=== PATIENT | male | born 2000 | race Two or more races ===

== ENCOUNTER 2019-01-09 12:56 | Emergency (ER) | payer MEDICAID ==
[~2019-01-09] VITALS: Ht 177.8 cm; Wt 68.0 kg
[~2019-01-09 12:56] MED LIST: IBUP-1984 PO
[2019-01-09 13:01] VITALS: BP 116/67
== END 2019-01-09 14:14 | disposition home or self-care (01) ==
LOC: ER 12:56
DX: S99.912A Unspecified injury of left ankle, initial encounter (principal); X50.1XXA Overexertion from prolonged static or awkward postures, initial encounter; Y93.89 Activity, other specified; Y92.89 Other specified places as the place of occurrence of the external cause; Y99.9 Unspecified external cause status
CPT/HCPCS: 73610; 99284